=== PATIENT | female | born 1970 | race Caucasian/White ===

== ENCOUNTER → 2016-08-22 | Outpatient (CLI) | payer BC ==
[~2016-08-22] MED LIST: CITA40TA5 PO; CYCL10TA45 PO
[2016-08-22 23:23] VITALS: BP 177/117
--- NOTE | 2016-08-22 23:23 | Urgent Care T Sheet Gen (E) ---
Intake General Temperature (Fahrenheit): 99.4 Pulse: 92 Blood Pressure Systolic: 177 Blood Pressure Diastolic: 117 Respirations: 18 SPO2: 98 Chief Complaint: sore throat Source: Patient Exam Limitations: No limitations History of Present Illness Initial Comments Pt is here to rule out strep, as she has a sore throat but her father is having surgery tonight and she was expected to see him afterwards. She started having a sore throat about 2 days ago. She's had some runny nose, but no sinus issues. She is still recovering from some bronchitis she had a while ago, and has had a wet cough for about 2 weeks or more without much change. No fever, but some body aches, which she had attributed to ehr fibromyalgia until she saw white patches on her tonsils earlier tonight and thought she better come in and be sure if it's okay for her to be around her father post-surgery. She has never had strep before, and knows of no specific exposure. Onset & Duration: Days Timing: Still present Severity: Mild Allergies: Coded Allergies: No Known Drug Allergies (Unverified , 08/22/16) Home Meds Reported Medications Cyclobenzaprine HCl (Flexeril)10 Mg [id number] Mg PO DAILY PRN DISCOMFORT Ref 0 08/22/16 Citalopram Hydrobromide 40 Mg [id number] Mg PO DAILY 08/22/16 Respiratory Constitutional Symptoms: See HPINo Chills, No Fever EENTM: See HPINo Eye tearing, No Ear pain, No Ear discharge, No Nose Congestion, Throat painNo Throat swelling Respiratory: See HPI CoughNo Short of breath Musculoskeletal: Muscle pain (body aches) see HPI Skin: No symptoms reported Neurological: No symptoms reported All Other Systems Reviewed Remaining Systems: All other systems reviewed with negative findings Physical Exam Physical Exam General Appearance: WD/WN No apparent distress Eyes, Ears, Nose, Throat Ex: PERRL/EOMI Pharyngeal erythema (clear drainage present) Tonsillar exudate (white to clear, minimal) Other (TMs bulging bilaterally with clear fluid present; nasal turbinates mildly swollen with clear mucus present ; no sinus tenderness to palpation in maxillary and frontal sinuses) Neck Exam: Non tender Full range of motion Supple Normal inspection Normal thyroid Lymphadenopathy (anterior cervical adenopathy bilateral, mild, fluctuant , nontender) Respiratory Exam: Chest non-tender Lungs clear Normal breath sounds No respiratory distress Cardiovascular Exam: No murmur Skin Exam: Normal color Warm/dry/intact No rashes Lymphatic Exam: Other (see neck exam) Progress/Orders Lab Results Labs Results: Rapid Strep (negative) Departure Urgent Care Impression Chief Complaint: sore throat Impression: Primary Impression: Upper respiratory infection Qualified Code: J02.9 - Acute pharyngitis, unspecified Departure Disposition: HOME OR SELF-CARE Condition: Stable Referrals: DAMIR MENDOZA MD (PCP) Additional Instructions: Discussed with pt that her strep test was negative, so this is most likely viral or allergic in nature, and using antibiotics at this point would not be helpful. We can treat the symptoms with OTC cold medication,or a nasal steroid, as this will help with the inflammation of her throat and also decrease drainage. Pt thinks she may have some at home, which she uses occasionally; name and instructions for Flonase also given to pt. I do not think reflex culture is helpful in her case, given her lack of other symptoms and clear prior history, but I suggest she use a mask around her father to avoid passing this on if it is viral as I suspect. If not improving within a week, or if worsening with fever/chills, increased cough, increased sore throat, rash, or other concerning symptoms, she should follow up for reconsideration of antibiotics. Pt states understanding and agrees to plan. All questions answered. End of report . ZEUS COLON August 22, 2016 23:23
== END ==
LOC: MHUC 19:23
PROVIDERS: ATTEND Physician Assistant Medical
DX: J02.9 Acute pharyngitis, unspecified (principal)
CPT/HCPCS: 87880; 99213